=== PATIENT | male | born 1940 | race African-American/Black ===

== ENCOUNTER 2017-02-16 19:18 | Emergency (ER) | payer MEDICAID, MEDICARE, OTHER ==
[~2017-02-16] VITALS: Wt 62.5 kg
[~2017-02-16 19:18] MED LIST: ASPI-664 PO; CEPH500C PO; SIN25100 PO
[2017-02-17] MEDS ORDERED: SIN25100 PO (00:19)
[2017-02-17] MEDS ORDERED: ASPI-535 PO (00:19)
[2017-02-17 01:18] VITALS: BP 123/80; PULSE 78; RESP 17; TEMP 98.3
--- NOTE | 2017-02-17 07:41 | ERD ---
ER Documentation Chief Complaint Date/Time DATE: 02/17/17 TIME: 07:38 Chief Complaint Syncopal episode 5 days ago HPI 77-year-old male with a history of Parkinson's disease now on medications presenting for refill of his medications. He states that he has had many syncopal episodes in the past and now knows how to control them. He states that he feels it coming on and he starts walking and his symptoms get better. Usually happens when he is standing for prolonged periods without moving. After he was discharged from the hospital a few months ago he was taking his Parkinson's medications and felt a lot better, however he failed to follow-up with his primary doctor for refills. He denies having a syncopal episode today. He denies any chest pain or shortness of breath. He states that he has some mild low back pain that has been going on for several weeks. He denies any associated urinary or bowel incontinence or retention. No fevers or chills. He denies any new symptoms today. ROS All systems reviewed and are negative except as per history of present illness. Medications Home Meds Active Scripts Aspirin Ec (Aspir 81) 81 Mg Tablet., 81 MG PO DAILY, #30 TAB Prov:TIFFANIE PHOENIX MD 02/17/17 Carbidopa-Levodopa* (Sinemet*) 25-100 Mg Tab, 0.5 TAB PO TID, #30 TAB Prov:TIFFANIE PHOENIX MD 02/17/17 Cephalexin* (Cephalexin*) 500 Mg Capsule, 500 MG PO BID for 5 Days, CAP Prov:AMADEO WILSON 07/29/16 Carbidopa-Levodopa* (Sinemet*) 25-100 Mg Tab, 0.5 TAB PO TID for 30 Days, TAB Prov:AMADEO WILSON 07/29/16 Aspirin* (Aspirin* EC) 81 Mg Tablet., 81 MG PO DAILY for 30 Days Prov:AMADEO WILSON 07/29/16 Allergies Allergies: Coded Allergies: No Known Allergy (Unverified , 07/24/16) PMhx/Soc History of Surgery: Yes (pls see EMR) Anesthesia Reaction: No Hx Neurological Disorder: Yes (PARKINSON'S) Hx Respiratory Disorders: No Hx Cardiac Disorders: Yes (HIGH BP) Hx Psychiatric Problems: No Hx Miscellaneous Medical Probl: Yes (pls see EMR) Hx Alcohol Use: Yes (BEER) Hx Substance Use: No Hx Tobacco Use: No Smoking Status: Never smoker FmHx Family History: No diabetes Physical Exam Vitals Vital Signs Date Time Temp Pulse Resp B/P Pulse Ox O2 Delivery O2 Flow Rate FiO2 02/17/17 01:18 98.3 78 17 123/80 95 Room Air 02/16/17 23:50 68 17 154/80 100 Room Air 02/16/17 20:06 98.3 76 18 105/70 97 Physical Exam Const: No apparent distress, tremors in bilateral upper extremities that seem difficult to control Head: Atraumatic Eyes: Normal Conjunctiva ENT: Normal External Ears, Nose and Mouth. Neck: Full range of motion. No meningismus. Resp: Clear to auscultation bilaterally Cardio: Regular rate and rhythm, no murmurs Abd: Soft, non tender, non distended. Normal bowel sounds Skin: No petechiae or rashes Back: No midline or flank tenderness Ext: No cyanosis, or edema Neur: Awake and alert and oriented 3 Psych: Normal Mood and Affect Procedures/MDM Patient is presenting with chronic symptoms of his Parkinson's disease with no new complaints. His vitals are stable. His exam is unremarkable other than his parkinsonian symptoms. I do not think he needs any further workup at this time as he has had multiple workups in the past for his syncope and does not seem to be a new symptom for him. I agreed to refill the patient's Sinemet and aspirin. I gave him a list of community clinics where he can follow-up for refills of his medications. Patient was discharged in stable condition. Departure Diagnosis: Primary Impression: Parkinson disease Additional Impression: Back pain Back pain location: low back pain Chronicity: chronic Back pain laterality : unspecified Sciatica presence: without sciatica Qualified Code: M54.5 - Chronic low back pain without sciatica, unspecified back pain laterality Condition: Stable Patient Instructions: Getting Around with Parkinson's Disease, Treating Parkinson's Disease: An Overview, Back Pain (Acute Or Chronic) Referrals: COMMUNITY CLINICS YOU HAVE RECEIVED A MEDICAL SCREENING EXAM AND THE RESULTS INDICATE THAT YOU DO NOT HAVE A CONDITION THAT REQUIRES URGENT TREATMENT IN THE EMERGENCY DEPARTMENT. FURTHER EVALUATION AND TREATMENT OF YOUR CONDITION CAN WAIT UNTIL YOU ARE SEEN IN YOUR DOCTORS OFFICE WITHIN THE NEXT 1-2 DAYS. IT IS YOUR RESPONSIBILITY TO MAKE AN APPOINTMENT FOR FOLOW-UP CARE. IF YOU HAVE A PRIMARY DOCTOR --you should call your primary doctor and schedule an appointment IF YOU DO NOT HAVE A PRIMARY DOCTOR YOU CAN CALL OUR PHYSICIAN REFERRAL HOTLINE AT IF YOU CAN NOT AFFORD TO SEE A PHYSICIAN YOU CAN CHOSE FROM THE FOLLOWING [facility] [address] [facility] [address] [facility] [address] [facility] [address] [facility] [address] [facility]. [facility] [address] [facility]. [facility] YOU HAVE RECEIVED A MEDICAL SCREENING EXAM AND THE RESULTS INDICATE THAT YOU DO NOT HAVE A CONDITION THAT REQUIRES URGENT TREATMENT IN THE EMERGENCY DEPARTMENT. FURTHER EVALUATION AND TREATMENT OF YOUR CONDITION CAN WAIT UNTIL YOU ARE SEEN IN YOUR DOCTORS OFFICE WITHIN THE NEXT 1-2 DAYS. IT IS YOUR RESPONSIBILITY TO MAKE AN APPOINTMENT FOR FOLOW-UP CARE. IF YOU HAVE A PRIMARY DOCTOR --you should call your primary doctor and schedule and appointment IF YOU DO NOT HAVE A PRIMARY DOCTOR YOU CAN CALL OUR PHYSICIAN REFERRAL HOTLINE AT . IF YOU CAN NOT AFFORD TO SEE A PHYSICIAN YOU CAN CHOSE FROM THE FOLLOWING [facility]: [facility] [address] [place] [address] [facility] [address] [place] [address] [facility] + [facility] [address] [place] [address] TIFFANIE PHOENIX MD Feb 17, 2017 07:41
== END 2017-02-17 01:18 | disposition home or self-care (01) ==
LOC: E/R 19:18
DX: G20 Parkinson's disease (principal); M54.5 Low back pain; I10 Essential (primary) hypertension; R40.2142 Coma scale, eyes open, spontaneous, at arrival to emergency department; R40.2252 Coma scale, best verbal response, oriented, at arrival to emergency department; R40.2362 Coma scale, best motor response, obeys commands, at arrival to emergency department; Z79.82 Long term (current) use of aspirin
CPT/HCPCS: 99283